=== PATIENT | female | born 1990 ===

== ENCOUNTER 2019-07-03 16:47 | Inpatient (IN) | payer OTHER ==
[~2019-07-03] VITALS: Ht 167.6 cm; Wt 77.3 kg
[~2019-07-03 16:47] MED LIST: PREN1TAB10 PO
[2019-07-03] MEDS ORDERED: OXYTOCIN 30U/ 0.9% NaCL 500ML 500 ML IV ONE (17:27)
[2019-07-03] MEDS ORDERED: ONDANSETRON 2MG/ML, 2ML IVPush PRN (17:30)
[2019-07-03] MEDS ORDERED: FENTANYL PF 100 MCG/2ML IVPush PRN (17:30)
[2019-07-03] MEDS ORDERED: TERBUTALINE 1 MG/ML, 1ML SQ PRN (17:30)
[2019-07-03] MEDS ORDERED: FENTANYL PF 100 MCG/2ML ONE (17:30)
[2019-07-03] MEDS ORDERED: TERBUTALINE 1 MG/ML, 1ML IVPush PRN (17:30)
[2019-07-03] MEDS: LACTATED RINGERS 1,000 ML IV SCH ×2 (17:40→17:52)
[2019-07-03 17:41] VITALS: BP 125/56
[2019-07-03 17:56] LABS: BASOPHILS # (AUTO) 0.04 x10^3/uL (0-0.1); BASOPHILS % (AUTO) 0 % (0-1); EOSINOPHILS # (AUTO) 0.13 x10^3/uL (0-0.4); EOSINOPHILS % (AUTO) 1 % (1-7); LYMPHOCYTES # (AUTO) 1.91 x10^3/uL (1-3.4); LYMPHOCYTES % (AUTO) 16 % (22-44); MD NO; MEAN CORPUSCULAR HEMOGLOBIN 26.8 pg (27.0-34.8); MEAN CORPUSCULAR HGB CONC 32.9 g/dL (32.4-35.8); MEAN CORPUSCULAR VOLUME 81.5 fL (80-100); MEAN PLATELET VOLUME 9.1 fL (7.4-10.4); MONOCYTES # (AUTO) 0.89 x10^3/uL (0.2-0.8); MONOCYTES % (AUTO) 7 % (2-9); NEUTROPHILS # (AUTO) 9.29 x10^3/uL (1.8-6.8); NEUTROPHILS % (AUTO) 76 % (42-75); PLATELET COUNT 325 x10^3/uL (130-400); RED BLOOD COUNT 4.11 x10^6/uL (3.82-5.3); RED CELL DISTRIBUTION WIDTH 15.1 % (9.6-15.2)
[2019-07-03] MEDS ORDERED: FENTANYL/BUPIV./NS/PF 250 ML EPIDCONT SCH ×2 (17:58→18:13)
[2019-07-03] MEDS ORDERED: NEWBORN KIT ONE (18:00)
[2019-07-03] MEDS ORDERED: LIDOCAINE 1%, 20ML ONE (18:00)
[2019-07-03] MEDS ORDERED: FENTANYL/BUPIV./NS/PF 250 ML EPIDCONT ONE ×2 (18:01→18:20)
[2019-07-03] MEDS ORDERED: OXYTOCIN 30U/ 0.9% NaCL 500ML 500 ML ONE (18:01)
[2019-07-03] MEDS ORDERED: MISOPROSTOL 200 MCG TABLET ONE (18:01)
[2019-07-03] MEDS ORDERED: LACTATED RINGERS 1,000 ML IV SCH (18:13)
[2019-07-03] MEDS ORDERED: BUPIVACAINE 0.25% ONE ×2 (18:15→18:20)
[2019-07-03] MEDS ORDERED: EPHEDRINE 50 MG/ML, 1ML IVPush PRN (18:30)
[2019-07-03] MEDS ORDERED: LACTATED RINGERS 1,000 ML IVBOLUS PRN (18:30)
[2019-07-03] MEDS ORDERED: NALOXONE 0.4 MG/ML, 1ML IVPush PRN (18:30)
[2019-07-03] MEDS ORDERED: CALCIUM CARBONATE 500 MG TAB.CHEW ONE (22:08)
[2019-07-04] MEDS ORDERED: OXYcodone IR 5MG TABLET PO PRN (01:30)
[2019-07-04] MEDS ORDERED: SIMETHICONE 80 MG CHEW TAB PO PRN (01:30)
[2019-07-04] MEDS ORDERED: ACETAMINOPHEN 325 MG TABLET PO PRN (01:30)
[2019-07-04] MEDS ORDERED: ONDANSETRON 2MG/ML, 2ML IV PRN (01:30)
[2019-07-04] MEDS ORDERED: MISOPROSTOL 200 MCG TABLET PR PRN (01:30)
[2019-07-04] MEDS ORDERED: OXYcodone/APAP 5/325MG TABLET PO PRN (01:30)
[2019-07-04] MEDS ORDERED: OXYTOCIN 30U/ 0.9% NaCL 500ML 500 ML ONE (01:36)
[2019-07-04] MEDS: OXYTOCIN 30U/ 0.9% NaCL 500ML 500 ML IV SCH ×2 (01:37→11:24)
[2019-07-04 03:30] VITALS: BP 101/58
[2019-07-04] MEDS: IBUPROFEN 600 MG TABLET PO PRN ×3 (04:51→21:26)
[2019-07-04 09:00] VITALS: BP 107/68
[2019-07-04 09:01] LABS: MEAN CORPUSCULAR HEMOGLOBIN 26.3 pg (27.0-34.8); MEAN CORPUSCULAR HGB CONC 32.2 g/dL (32.4-35.8); MEAN CORPUSCULAR VOLUME 81.4 fL (80-100); PLATELET COUNT 290 x10^3/uL (130-400); RED CELL DISTRIBUTION WIDTH 14.9 % (9.6-15.2)
[2019-07-04] MEDS: DOCUSATE 100 MG CAPSULE PO PRN (09:10)
[2019-07-04] MEDS: PRENATAL VIT/IRON/FA 1 EACH TABLET PO SCH (09:10)
[2019-07-04 09:26] LABS: MD YES
[2019-07-04 09:27] LABS: BAND#(MANUAL) 1.15 x10^3/uL; BANDS%(MANUAL) 7 % (0-7); LYMPH#(MANUAL) 0.98 x10^3/uL (1-3.4); LYMPHS% (MANUAL) 6 % (22-44); MONOS#(MANUAL) 1.31 x10^3/uL (0.3-2.7); MONOS% (MANUAL) 8 % (2-9); SEG#(MANUAL) 12.96 x10^3/uL (1.8-6.8); SEGS% (MANUAL) 79 % (42-75)
[2019-07-04 09:30] LABS: ANISOCYTOSIS 1+; HYPOCHROMIA 1+; MICROCYTOSIS 1+
[2019-07-04 09:31] LABS: <PLATELET ESTIMATE> ADEQUATE; LARGE PLATELETS 1+; OVALOCYTES 1+
[2019-07-04 09:32] LABS: TOXIC GRAN 1+
[2019-07-04 12:00] VITALS: BP 115/75
[2019-07-04 16:02] VITALS: BP 120/77
[2019-07-04 19:25] VITALS: BP 118/76
[2019-07-05 00:15] VITALS: BP 124/74
[2019-07-05] MEDS: IBUPROFEN 600 MG TABLET PO PRN ×2 (04:10→09:38)
[2019-07-05 08:05] VITALS: BP 107/66
[2019-07-05] MEDS: PRENATAL VIT/IRON/FA 1 EACH TABLET PO SCH (09:38)
[2019-07-05] MEDS: DOCUSATE 100 MG CAPSULE PO PRN (09:38)
[2019-07-05] MEDS ORDERED: DIPH,PERTUSS(ACELL),TET VAC/PF NC IM-VACC ONE ×2 (10:39→11:00)
[2019-07-05] MEDS ORDERED: IBUP-1222 PO (10:55)
== END 2019-07-05 13:08 | disposition home or self-care (01) | DRG 807 ==
LOC: LDOP 16:47 → LDIP 17:19 → 2NW 07-04 03:19
PROVIDERS: ADMIT Obstetrics & Gynecology; ATTEND Obstetrics & Gynecology
PROC: 10E0XZZ Delivery of Products of Conception, External Approach (ICD-10-PCS; principal; 2019-07-04)
PROC: 0HQ9XZZ Repair Perineum Skin, External Approach (ICD-10-PCS; 2019-07-04)
PROC: 3E0R3BZ Introduction of Anesthetic Agent into Spinal Canal, Percutaneous Approach (ICD-10-PCS; 2019-07-04)
PROC: 00HU33Z Insertion of Infusion Device into Spinal Canal, Percutaneous Approach (ICD-10-PCS; 2019-07-04)
PROC: 3E0234Z Introduction of Serum, Toxoid and Vaccine into Muscle, Percutaneous Approach (ICD-10-PCS; 2019-07-05)
DX: O70.0 First degree perineal laceration during delivery (principal); Z37.0 Single live birth; Z3A.40 40 weeks gestation of pregnancy; Z23 Encounter for immunization
CPT/HCPCS: 36415; 85025; 86850; 86900; 89060; 90715; G0378; J3010; J3490; J2590; J7120; Q0114